=== PATIENT | female | born 1990 | race Caucasian/White ===

== ENCOUNTER 2016-02-29 17:38 | Emergency (ER) | payer OTHER ==
[~2016-02-29] VITALS: Ht 157.5 cm; Wt 109.5 kg
[2016-02-29 17:40] VITALS: BP 135/88; PULSE 98; RESP 20; O2SAT 100
--- NOTE | 2016-02-29 18:28 | ED.REPORT ---
HPI-Dyspnea / Wheezing Date of Service Feb 29, 2016 ED Provider: Cornelio Smith DO Ms. Falk is a 25 y/o woman who is 37 weeks and 6 days and presents complaining of shortness of breath. On Saturday, she had a regular check-up and her blood pressure was spiked at OB office. They did a work up for preeclampsia , which was normal. Followed up today at women[facility] health clinic and BP normal but heart rate 100-130 bpm. Nasal congestion with some blood in snot and right maxillary pressure started on Saturday. Her is currently sick with a cold as well. She feels out of breath with speech. She has palpitations and feels anxious and heavy chest for the last couple of days. It has been intermittent for past week. More movement and sudden movements make it worse. This is her first and baby continues to move. No pleuritic chest pain. Winded with flight of stairs or at work. 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 No increased leg swelling, and her leg swelling seems better. Her hand swelling has worsened over the past week though. Got her flu shot this year. Takes benadryl for sleep occasionally but has not taken it in the past few days. She last took Sudafed on Saturday at 2 PM. Nursing Notes Stated Complaint: POSSIBLE PE Chief Complaint: Respiratory Distress Allergies: Coded Allergies: No Known Allergies (Unverified , 02/29/16) General Time Seen by MD: 18:19 Chief Complaint Shortness of breath Hx Obtained From: Patient Arrived By: Walk-in Onset Occurred: 1 week ago Context of Onset: Upper resp infection Symptom Duration: Intermittent Associated with: Reports: Anxiety, Cough, Nasal congestion, Nausea, Numbness, hands (with driving), Denies: Calf pain, Chest pain, Fever, Hemoptysis, Leg pain, Leg swelling, Numbness, feet, Numbness, perioral, Sore throat, Vomiting Exacerbated by: Activity Relieved by: Rest (nap) Risk Factors CAD Risk Stratification No Amphetamine, No Cocaine, No Diabetes mellitus, No Family history, No Hyperlipidemia, No Hypertension, No Known CAD, No Smoking No risk factors PE Risk Stratification PregnancyNo Coagulation Disorder, No Malignancy, No , No Previous DVT , No Previous PE, No Surgery Last 60 Days, No Trauma Risk factors reviewed PERC Rule Heart rate 100 or over One or more crit "Yes" Well's Criteria for PE HR > 100 (1.5) Well's PE Score: 0-2 pts (low risk 3.6%) (based on vitals in the ED) Well's Criteria for DVT Well's DVT Score: 0 pts (low risk 5%) Past Medical History Past Medical History no known Smoking History Never Smoker Social History Alcohol Use: Denies alcohol use Drug Use: Denies drug use Review of Systems Basic Review of Systems Eyes: Vision NL, No discharge GI: No abdominal pain, No anorexia, No vomiting : No dysuria Neurologic: NL mental status, No weakness, No numbness Psychiatric: Normal thought content Constitutional: Denies: Chills, Fever, Weakness - generalized Ears / Nose / Throat: Reports: Nasal congestion, Sinus problem, Denies: Ear ringing bilateral, Hearing loss bilateral, Sore throat Respiratory: Reports: Dyspnea on exertion, Non-productive cough, Shortness of breath, Denies: Hemoptysis, Pleuritic pain, Wheezing Cardiovascular: Reports: Dyspnea on exertion, Edema (bilateral hands), Palpitations, Denies: Chest pain Musculoskeletal: Denies: Extremity pain Skin: Denies Itching, Denies Rash Allergy / Immune: Denies: Rhinorrhea, Sneezing Physical Exam Initial Vital Signs Vital Signs (First) Date Time Temp Pulse Resp B/P Pulse Ox O2 Delivery O2 Flow Rate FiO2 02/29/16 17:40 37.2 98 20 135/88 100 Room Air Initial VS: Reviewed, Vital signs normal Head / Eyes: Atraumatic, Normocephalic, PERRL ENT: Mucous membranes moist, Conjunctiva normal, No scleral icterus Lymphatic: No lymphadenopathy Extremities: Vascular intact, Neuro intact, No tenderness Skin: Warm, Dry, No cyanosis Neurologic: Alert, Oriented, Nonfocal Psychiatric: Mood/affect normal, Behavior normal, Normal thought content Neck: Atraumatic, Supple, No swelling, Non-tender Respiratory / Chest: Breath sounds NL, Breath sounds = bilat, No rales, No rhonchi, No wheezing Resp Distress / Stridor: Positive: Speaks phrases Cardiovascular: Heart rate NL, Regular rhythm, Heart sounds NL, No gallop, No murmurs, No rubs Upper Ext Edema: Positive: Bilateral 1+, Hand, Non-Pitting ENT: Mucous membranes moist, No peritonsillar abscess Pharynx / Tonsils / Uvula: Positive: Pharyngeal erythema (mild) Sinus: Positive: Tender maxillary R, Negative: Tender frontal L, Tender frontal R, Tender maxillary L Lower Extremity / Pelvis / MS: Inspection NL, No swelling, Non-tender, Neurologic intact, Vascular intact Interpretation & Diagnostics Interpretation & Diagnostics: EKG showed sinus tachycardia CXR did not show any acute changes CT chest angiogram did not show evidence of PE Lab Results Interpretation Result Diagram: 02/29/16 1850 02/29/16 1850 Test 02/29/16 18:50 White Blood Count 9.6th/mm3 (3.8-10.1) Red Blood Count 4.24mil/mm3 (3.90-5.20) Hemoglobin 12.0g/dL (12.0-15.6) Hematocrit 36.2% (35.0-46.0) Mean Corpuscular Volume 85.4fL (81-100) Mean Corpuscular Hemoglobin 28.3pg (27.0-35.0) Mean Corpuscular Hemoglobin Concent 33.1% (32.0-37.0) Red Cell Distribution Width 15.1% (12.3-15.4) Platelet Count 294bil/L (150-400) Neutrophils (%) (Auto) 71.1% (40-74) Lymphocytes (%) (Auto) 19.8% (14-46) Monocytes (%) (Auto) 6.6% (4-12) Eosinophils (%) (Auto) 1.9% (0-5) Basophils (%) (Auto) 0.2% (0-3) D-Dimer 2.2mg/L (<0.50) Sodium Level 137mEq/L (134-144) Potassium Level 4.0mEq/L (3.5-5.2) Chloride Level 103mEq/L (97-108) Carbon Dioxide Level 21mmol/L (18-29) Blood Urea Nitrogen 4mg/dL (6-20) Creatinine 0.43mg/dL (0.57-1.00) Estimat Glomerular Filtration Rate 261mL/min (>59) Glucose Level 88mg/dL (60-99) Calcium Level 8.9mg/dL (8.5-10.1) Total Bilirubin 0.2mg/dL (0.0-1.2) Aspartate Amino Transf (AST/SGOT) 21U/L (0-50) Alanine Aminotransferase (ALT/SGPT) 18U/L (0-32) Alkaline Phosphatase 174U/L (25-150) Total Protein 6.6g/dL (6.4-8.4) Albumin 3.1g/dL (3.4-5.0) Hold Bazan Top Tube Received (Received) Re-Eval/Medical Decision Med Decision/Clinical Course 1. Shortness of breath -Based on vital signs in ED, pt has low risk based on Well's Criteria for PE and for DVT -Met 1 PERC criteria -EKG shows sinus tachycardia -D-dimer 2.2, upper level of normal d-dimer in third trimester is 1.75 based on [employer] -CXR did not show any acute changes suggestive of pneumonia. Rapid influenza is negative. -Bilateral duplex venous US of lower extremity did not show DVT -CT chest angiogram shows no evidence of PE Differential Diagnosis: Negative: Anxiety, Congestive heart failure, Panic attack, Pericarditis, Pneumonia, Pulmonary embolism, Upper resp infection Discharge & Departure Impression: Primary Impression: Shortness of breath due to Trimester: third trimester Qualified Code: O26.893 - Other specified related conditions, third trimester Ruled Out: Pulmonary embolism affecting in third trimester Disposition: Home Discharge Condition All VS Reviewed: Yes Condition: Stable Patient Instructions: Reactive Airways Disease (ED) Additional Instructions: You do not have evidence of a pulmonary embolism based on the CT scan done today. 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 If you experience any worsening shortness of breath or swelling in your leg or pain in your leg, please seek medical attention. Referrals: Luis Lennon MD (PCP) Hood Edge MD 1 Week Attending Statement I took a history and performed a physical examination. I gave her at least moderate probability for pulmonary emboli based on her symptoms. D-dimer was 2.2 which is much greater than the 1.75 normal for her to rest her . Bilateral ultrasounds were negative for DVT. Chest x-ray did not show pneumonia. Influenza was negative. I do not have any other reason beyond the pulmonary emboli that could recently plane her symptoms. I consulted with our radiologist regarding VQ for CT angiogram. CT angiogram was recommended and performed. Pulmonary emboli was ruled out. Symptoms is uncertain but may be related to . 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 Dr. Torres was notified. copies to: Hood Edge MD; Luis Lennon MD, Marissa L DO Feb 29, 2016 18:27 Cornelio Smith DO Mar 01, 2016 18:10
[2016-02-29 18:55] LABS: BASOPHILS % (AUTO) 0.2 % (0-3); EOSINOPHILS % (AUTO) 1.9 % (0-5); MONOCYTES % (AUTO) 6.6 % (4-12); Mean Corpuscular Hemoglobin 28.3 pg (27.0-35.0); Mean Corpuscular Volume 85.4 fL (81-100); NEUTROPHILS % (AUTO) 71.1 % (40-74); Platelet Count 294 bil/L (150-400)
--- NOTE | 2016-02-29 19:56 | DRSVH ---
PROCEDURE: X-RAY CHEST ONE VIEW, PORTABLE ([id number]) INDICATIONS: dyspnea TECHNIQUE: One view of the chest was acquired. COMPARISON: [facility], , CHEST 2VW, 01/28/2014, 12:48. FINDINGS: Surgical changes and devices: None. Lungs and pleura: No pleural effusions or pneumothorax. Lungs are clear. Mediastinum: Mediastinal contours appear normal. Heart size is normal. Bones and chest wall: No suspicious bony lesions. Overlying soft tissues appear unremarkable. IMPRESSION: 1. No acute cardiopulmonary disease. Dictated by: Tavo Rayo M.D. on 02/29/2016 at 19:55 Approved by: Tavo Rayo M.D. on 02/29/2016 at 19:55
--- NOTE | 2016-02-29 20:12 | DRSVH ---
PROCEDURE: US VENOUS LEG DUPLEX BILATERAL INDICATIONS: short of breath, tachycardic, leg swelling TECHNIQUE: Real-time imaging, as well as color and pulse Doppler interrogation, were performed of the deep veins of both legs from the inguinal ligament to the popliteal fossa. COMPARISON: [facility], US, US VENOUS LEG DPLX UNI LT, 01/31/2016, 10:25. FINDINGS: The deep veins are normally compressible, and free of intraluminal thrombus. Color and pu lse Doppler demonstrate normal phasic intravascular flow. There is normal augmentation response to d istal compression maneuver. IMPRESSION: 1. No evidence of deep venous thrombosis in the right or left lower extremity. Dictated by: Tavo Rayo M.D. on 02/29/2016 at 20:10 Approved by: Tavo Rayo M.D. on 02/29/2016 at 20:10
--- NOTE | 2016-02-29 21:20 | DRSVH ---
PROCEDURE: CT ANGIO CHEST PULMONARY EMBOLISM ([id number]) INDICATIONS: 25 year-old female with tachycardia, dyspnea, ddimer 2.2, and negative lower e xtremity US. TECHNIQUE: After the administration of intravenous contrast, 2 mm thick sections acquired from the pulmonary api hugo to the posterior costophrenic angles. 3-dimensional maximum intensity projection (MIP) coronal a nd sagittal reformats were then acquired through the thorax. For radiation dose reduction, the follo wing was used: automated exposure control, adjustment of mA and/or kV according to patient size. COMPARISON: [facility], CR, XR CHEST 1VW (PORTABLE), 02/29/2016, 19:03. FINDINGS: Image quality: Excellent. Pulmonary arteries: Pulmonary arteries are normal in size, and demonstrate no intraluminal filling d efects to suggest central pulmonary embolism. Lungs and pleura: Lungs are clear without focal consolidation. No pleural effusions or pneumothorax . Central and peripheral airways are patent. Mediastinum: Heart size is normal, without pericardial effusion. No mediastinal or hilar adenopathy . There is residual thymus within the anterior mediastinum. Thoracic aorta is normal in caliber and enhancement. Esophagus is normal in caliber, without hiatal hernia. Bones and chest wall: No suspicious bony lesions. Ribs and thoracic spine appear intact throughout. Thyroid gland is partially visualized without a discrete nodule identified. No axillary or supracl avicular adenopathy. Abdomen: Visualized upper abdominal solid organs appear normal in the early arterial phase of enhanc ement. IMPRESSION: 1. No evidence of pulmonary embolism. Dictated by: Tavo Rayo M.D. on 02/29/2016 at 21:19 Approved by: Tavo Rayo M.D. on 02/29/2016 at 21:19
[2016-02-29] MEDS ORDERED: 0.9% Sodium Chloride 1,000 ML IV ONE (21:35)
[2016-02-29] MEDS ORDERED: 0.9% Sodium Chloride 1,000 ML ONE (21:37)
[2016-02-29 22:32] VITALS: BP 121/75; PULSE 88; RESP 16; O2SAT 100
[2016-02-29 22:33] VITALS: BP 121/75; PULSE 88; RESP 16; O2SAT 100
== END 2016-02-29 22:33 | disposition home or self-care (01) ==
LOC: SED 17:38
DX: O26.893 Other specified pregnancy related conditions, third trimester (principal); R06.02 Shortness of breath; R00.0 Tachycardia, unspecified; Z3A.37 37 weeks gestation of pregnancy
CPT/HCPCS: 36415; 71010; 71275; 80053; 85025; 85379; 87804; 93005; 93970; 96360; 99285; J7030; Q9967

== ENCOUNTER 2016-03-13 04:25 | Inpatient (IN) | payer OTHER ==
[~2016-03-13] VITALS: Ht 157.5 cm; Wt 109.8 kg
[2016-03-13] MEDS ORDERED: Lactated Ringer's 1,000 ML IV SCH (10:47)
[2016-03-13] MEDS ORDERED: Oxytocin 30 Units/500 mL LR 30 UNITS in IV Premix 1 EACH IV PRN (10:50)
[2016-03-13] MEDS ORDERED: diphenhydrAMINE 50 mg Capsule PO PRN (10:50)
[2016-03-13] MEDS ORDERED: Lactated Ringer's 1,000 ML IV PRN ×2 (11:08→11:11)
[2016-03-13] MEDS ORDERED: Oxytocin 10 Unit/mL Inj IM PRN (11:10)
[2016-03-13] MEDS ORDERED: Sodium Chloride LOK Flush 10 mL Syringe IVFLUSH PRN ×2 (11:10→11:15)
[2016-03-13] MEDS ORDERED: Carboprost 250 mCg/mL Inj IM PRN (11:10)
[2016-03-13] MEDS ORDERED: Methylergonovine 0.2 mg/mL Inj IM PRN (11:10)
[2016-03-13] MEDS ORDERED: Hemorrhage Kit, Post Partum XX ONE ×2 (11:10→11:15)
[2016-03-13] MEDS ORDERED: Penicillin G K Inj 5,000,000 UNITS in Dextrose 5% Minibag Plus 100 ML IV ONE (11:15)
--- NOTE | 2016-03-13 11:16 | PCM.HPOB ---
Subjective Date of Service: Mar 13, 2016 Referring Provider: Admitting Physician: Bridget Tafoya MD Primary Care Physician: Luis Lennon MD Attending Physician: Bridget Tafoya MD Chief Complaint Induction of Labor History of Present History of Present Illness Patricia Falk is s 25 year old woman at 39 weeks 5 days presents to [facility] for induction of labor. is complicated by Rh- status for which she received RhoGAM at 27 weeks and GBS positive. Patient's WILFREDO by LMP 03/15/2016, by 9 week ultrasound 03/17/2016. OB History: (1), Para (0) Past Medical History Medical History: Pt denies PMH Surgical History: Pt denies PSH Hx Tobacco Use: No Hx Alcohol Use: No Hx Substance Use: No Past Family History Living Arrangement: with Family Genetic Screening/Counseling Genetic Screening/Counseling: Negative Review of Systems Constitutional: Y: Chills, Dizziness, Fever Eyes: Denies: Blurred Vision Cardiovascular: Denies: Chest Pain, Palpitations Respiratory: Denies: Cough, Wheezing Gastrointestinal: Denies: Abdominal Pain, Constipation, Diarrhea, Nausea, Vomiting Genitourinary: Denies: Dysuria Neurological: Denies: Confusion, Dizziness, Numbness Additional Information Blood transfusion if necessary is acceptable to patient Medications Home medications , hydroxyzine recently prescribed secondary to insomnia Allergy Coded Allergies: No Known Allergies (Unverified , 02/29/16) Exam Vital Signs Blood pressure 122/67, 88. At time of dictation patient 1.5 centimeters dilated, -3 station 60% effacement. Exam FHR 150's HEENT: Atraumatic, PERRLA Lungs: Clear to Auscultation, Normal Air Movement Heart: Exam Unremarkable, Regular Rate/Rhythm Abdomen: Gravid Extremities: No Edema Neurological/Psychiatric: Oriented X3, Cooperative, No Acute Distress Labs/Diagnostics Labs Blood type O-, antibody screen negative, RPR nonreactive, hep B surface antigen negative, hep C negative, HIV nonreactive, varicella < 135, rubella 1.99, A1c 5.0, TSH 1.71, HPV negative, gonorrhea/chlamydia negative Ultra Sound Ultrasound dated 03/07/2016 showed single living intrauterine gestation, vertex presentation, posterior placental position without previa Maternal Blood Type: O (negative) Hx Rho(D) Immune Globulin: Yes OB Intrapartum Assessment/Plan Assessment 25-year-old presents for induction of labor. ABX ordered for GBS status. Pt received Rhogam at 27 weeks Problems: (1) Elective induction of labor planned Plan: Proceed with expectant management, anticipate delivery today. Status: Acute Pain Evaluation: Adequate Pain Control Attending Statement Here for induction of labor, semi elective due to a single elevated blood pressure in clinic, and several episodes of tachycardia w/ rule out pulmonary embolism workup, negative for any concerning findings. Cervix is not favorable , will plan cytotec induction of labor, BP normal on L&D, will monitor for worsening. RH negative, plan rhogam if indicated, also varicella non immune, vaccinate PP. heart tones reassuring. CARL REDMAN DO Mar 13, 2016 11:08 Lucy Garsia MD Mar 17, 2016 11:34
[2016-03-13 11:18] LABS: Mean Corpuscular Hemoglobin 28.1 pg (27.0-35.0); Mean Corpuscular Volume 85.8 fL (81-100)
[2016-03-13] MEDS ORDERED: Misoprostol 25 mCg/0.25 Tablet VAGINAL SCH (11:35)
[2016-03-13] MEDS ORDERED: Penicillin G K Inj 3,000,000 UNITS in IV Premix 1 EACH IV SCH (16:30)
--- NOTE | 2016-03-14 01:55 | PCM.PNOBIP ---
Subjective Date of Service Mar 14, 2016 Subjective Patient admitted for planned elective induction of labor on 03/13. Cervix unfavorable and single dose of cytotec given. Nursing staff availability was limited and her induction was put on hold due to pressing concerns on the floor. The patient will be monitored overnight and induction will be restarted this evening when nursing staff are available. Blood Type: O (negative) Labs Laboratory Tests 03/13/16 10:35: White Blood Count 10.5, Red Blood Count 4.09, Hemoglobin 11.5, Hematocrit 35.1, Mean Corpuscular Volume 85.8, Mean Corpuscular Hemoglobin 28.1, Mean Corpuscular Hemoglobin Concent 32.8, Red Cell Distribution Width 15.7, Platelet Count 282 Exam Vital Signs Vital Signs Contraction frequency in minutes: MVUs: Heart Tracings Heart Tones Baseline 120 bpm Heart Rate Variability: Moderate Heart Rate Accelleration: Present Heart Rate Deceleration: Other (Occasional mild variables) Tocometry/IUPC irritability Exam General: Oriented X3, Cooperative, No Acute Distress OB Intrapartum Assessment/Plan Problems: (1) Elective induction of labor planned Plan: Continue observation at this time. Induction placed on hold due to multiple L&D admissions without appropriate nursing staff and induction deemed to be elective. Will restart cytotec when staff cytotechnologist are available. Status: Acute Intrapartum plan: Continue expected management Pain Evaluation: Adequate Pain Control Lucy Garsia MD Mar 14, 2016 01:55
[2016-03-14 09:07] LABS: Mean Corpuscular Hemoglobin 27.6 pg (27.0-35.0); Mean Corpuscular Volume 85.2 fL (81-100)
--- NOTE | 2016-03-14 11:23 | PCM.DC.OB ---
Obstetrical Discharge Summary Date of Service Mar 14, 2016 Date of hospital admission Mar 13, 2016 at 10:06 Date of Discharge: Mar 14, 2016 Providers Admitting Physician: Bridget Tafoya MD Primary Care Physician: Luis Lennon MD Attending Physician: Bridget Tafoya MD Diagnosis at Time of Discharge Prolonged labor secondary to non favorable cervix Problems: (1) Elective induction of labor planned Plan: Pt had failure to progress in labor. She remains 2cm approximately 60% effaced, and at -3 station. Status: Acute Brief History and Physical: Patricia Falk is s 25 year old woman at 39 weeks 5 days presents to [facility] for induction of labor. is complicated by Rh- status for which she received RhoGAM at 27 weeks and GBS positive. Patient's WILFREDO by LMP 03/15/2016, by 9 week ultrasound 03/17/2016. Hospital Course: Patricia Falk is s 25 year old woman at 39 weeks 5 days who presented to the [facility] for planned induction of labor. is complicated by Rh- status for which she received RhoGAM at 27 weeks and GBS positive, which she did receive ABX. Patient's WILFREDO by LMP 03/15/2016, by 9 week ultrasound 03/17/2016. Pt's cervix determined to be unfavorable and single dose of cytotec given. The nursing staff availability was limited on day of scheduled induction and her induction was put on hold. Pt was monitored overnight with planned induction on the . Nursing staff demands remained high and repeat induction was unable to be accomplished secondary to inadequate nursing availability secondary to pressing concerns on the floor. Pt blood pressure stable x 2 days and pre- ecclampsia labs unremarkable. Disposition Discharge to home, will follow up in [facility] clinic in 2 days. Discharge Diet: No restrictions Discharge Activity-General: No restrictions, Be up and about Patient instructions You are being discharged to home today will see you in the office for follow up on Saturday. If you develop worsening contractions, notice a decrease in movement, develope severe abdominal pain, develop fevers greater than 100.4 degrees or experience any abnormal bleeding or leakage of fluids from your vagina please return to the [facility]. CARL REDMAN DO Mar 14, 2016 11:23
--- NOTE | 2016-03-14 11:36 | PCM.DIOB ---
Obstetrical Disch Instruction Date of Service: Mar 14, 2016 Dates of Hospitalization Date of Hospital Admission Mar 13, 2016 at 10:06 Providers Admitting Physician: Bridget Tafoya MD Primary Care Physician: Luis Lennon MD Attending Physician: Bridget Tafoya MD Discharge Diagnosis Problems: (1) Elective induction of labor planned Plan: Induction placed on hold due to multiple L&D admissions without appropriate nursing staff and induction deemed to be elective. Will follow up at [facility] in 2 days Status: Acute Diet Discharge Diet: No restrictions Activity Discharge Activity-General: No restrictions, Be up and about, Activity as energy allows Dressing and Incisional Care Hygiene: May shower Additional Instructions Discharge Instructions You are being discharged to home today, we will see you in the office for follow up on Saturday. If you develop worsening contractions, notice a decrease in movement, develop severe abdominal pain, develop fevers greater than 100.4 degrees or experience any abnormal bleeding or leakage of fluids from your vagina please return to the [facility]. Follow Up Plan Follow Up Plan Follow up at the women's health clinic in 2 days Follow-up appointment: Days (2) Call your provider for: Fever or Chills, Shortness of breath, Heavy vaginal bleeding, Heavy bleeding, Epigastric pain, Excessive constipation, Vaginal discomfort, Red painful breasts CARL REDMAN DO Mar 14, 2016 11:36
[2016-03-14 11:39] VITALS: BP 124/68; PULSE 70; RESP 18
== END 2016-03-14 12:06 | disposition home or self-care (01) | DRG 782 ==
LOC: FBC 10:06
PROVIDERS: ADMIT Obstetrics & Gynecology; ATTEND Obstetrics & Gynecology
PROC: 3E0P7GC Introduction of Other Therapeutic Substance into Female Reproductive, Via Natural or Artificial Opening (ICD-10-PCS; principal; 2016-03-13)
DX: O61.9 Failed induction of labor, unspecified (principal); Z3A.39 39 weeks gestation of pregnancy

== ENCOUNTER 2016-03-16 09:24 | Inpatient (IN) | payer OTHER ==
[~2016-03-16] VITALS: Ht 157.5 cm; Wt 111.6 kg
[2016-03-16] MEDS ORDERED: Lactated Ringer's 1,000 ML IV PRN (09:26)
[2016-03-16] MEDS ORDERED: Hemorrhage Kit, Post Partum XX ONE ×2 (09:30→21:25)
[2016-03-16] MEDS ORDERED: Oxytocin 30 Units/500 mL LR 30 UNITS in IV Premix 1 EACH IV PRN ×2 (09:30→21:25)
[2016-03-16] MEDS ORDERED: Methylergonovine 0.2 mg/mL Inj IM PRN ×2 (09:30→21:25)
[2016-03-16] MEDS ORDERED: Sodium Chloride LOK Flush 10 mL Syringe IVFLUSH PRN (09:30)
[2016-03-16] MEDS ORDERED: Oxytocin 10 Unit/mL Inj IM PRN ×2 (09:30→21:25)
[2016-03-16] MEDS ORDERED: fentaNYL-PF 50 mCg/mL 2 mL Inj IVPUSH PRN (09:30)
[2016-03-16] MEDS ORDERED: Penicillin G K Inj 5,000,000 UNITS in Dextrose 5% Minibag Plus 100 ML IV ONE (09:30)
[2016-03-16] MEDS ORDERED: Carboprost 250 mCg/mL Inj IM PRN ×2 (09:30→21:25)
[2016-03-16] MEDS ORDERED: PREN1TAB25 PO (09:58)
[2016-03-16] MEDS ORDERED: HYDR-656 PO (09:58)
[2016-03-16] MEDS: Lactated Ringer's 1,000 ML IV SCH ×4 (11:09→23:19)
[2016-03-16 11:52] LABS: Mean Corpuscular Hemoglobin 27.8 pg (27.0-35.0); Mean Corpuscular Volume 86.2 fL (81-100)
[2016-03-16] MEDS: Penicillin G K Inj 3,000,000 UNITS in IV Premix 1 EACH IV SCH ×3 (15:19→23:00)
--- NOTE | 2016-03-16 15:50 | PCM.HPOB ---
Subjective Date of Service: Mar 16, 2016 Referring Provider: Admitting Physician: Lucy Garsia MD Primary Care Physician: Luis Lennon MD Attending Physician: Lucy Garsia MD Chief Complaint Spontaneous rupture of membranes Term History of Present History of Present Illness 25 year old at 40 weeks 1 day gestation presents to [facility] from clinic for induction of labor. Per clinic note today she felt leaking fluid at 6 am yesterday (03/15/15) on exam she was positive for pooling, nitrite and ferning. Send in to [facility] for induction of labor. cervical exam: /-3/soft/mid is complicated by Rh- status for which she received RhoGAM at 27 weeks and GBS positive. Patient's WILFREDO by LMP 03/15/2016, by 9 week ultrasound 03/17/2016. OB History: (1), Para (0) Past Medical History Obstetrical History: none Medical History: none Surgical History: none Hx Tobacco Use: No Hx Alcohol Use: No Hx Substance Use: No Past Family History Living Arrangement: with Family Genetic Screening/Counseling Genetic Screening/Counseling: Negative Review of Systems Constitutional: Y: Chills, Fever Eyes: Denies: Blurred Vision ENT: Reports: Nasal Congestion Cardiovascular: Denies: Chest Pain Respiratory: Denies: Cough Gastrointestinal: Denies: Epigastric pain Genitourinary: Denies: Dysuria Neurological: Denies: Dizziness, Weakness Medications Home medications hydroxyzine prn for sleep vitamin Allergy Coded Allergies: No Known Allergies (Unverified , 02/29/16) Exam Constitutional: Well-developed, Well-nourished HEENT: Atraumatic Lungs: Clear to Auscultation, Normal Air Movement Heart: Regular Rate/Rhythm, No Murmurs/Rubs/Gallops Abdomen: Gravid, Normal bowel sounds Extremities: Warm, Edema (+1) Neurological/Psychiatric: Alert, Oriented X3 Neuro: Grossly Neurologically Intact Labs/Diagnostics Labs Blood type O-, antibody screen negative, RPR nonreactive, hep B surface antigen negative, hep C negative, HIV nonreactive, varicella non immune, rubella immune , A1c 5.0, TSH 1.71, HPV negative, gonorrhea/chlamydia negative Maternal Blood Type: O Hx Rho(D) Immune Globulin: Yes (27 weeks) Antibody Screen: neg Group B Strep Results: Positive Previous Infant with GBS: No Rubella: Immune OB Intrapartum Assessment/Plan Assessment 25 yo with grossly ruptured membranes, ROM+ sent here for induction of labor. Rh negative, GBS positive, varicella nonimmune Problems: (1) PROM (premature rupture of membranes) Plan: Continue with induction of labor and expectant management Status: Acute ICD Code: O42.90 (2) Rh negative status during Plan: RhoGam given at 27 weeks, give intrapartum and if needed post . Status: Acute ICD Code: O09.899 (3) Positive GBS test Plan: Treat with IV penicillin Status: Acute ICD Code: B95.1 (4) Qualifiers: Weeks of gestation: 40 weeks Qualified Code: Z3A.40 - 40 weeks gestation of Plan: Continue expectant management Status: Acute ICD Code: Z33.1 (5) Maternal varicella, non-immune Plan: Varicella vaccine at post visit Status: Acute ICD Code: O09.899 Pain Management: Epidural when desired Pain Evaluation: Adequate Pain Control Intrapartum plan Continue supportive care Attending Statement The patient was seen and examined together and I agree with the history, exam and plan as outlined in the note above. Admitted for augmentation of labor for prolonged rupture of membranes after failed induction two days prior. Pitocin started per protocol. Continue expectant management. CLAUDIA KOLB DO Mar 16, 2016 15:11 Lucy Garsia MD Mar 17, 2016 22:54
[2016-03-16] MEDS ORDERED: Lactated Ringer's 500 ML IV ONE (16:58)
[2016-03-16] MEDS ORDERED: EPHEDrine Sulfate 50 mg/mL Inj IVPUSH PRN (17:00)
[2016-03-16] MEDS ORDERED: Atropine 1 mg/10 mL (Code) Syringe IVPUSH PRN (17:00)
[2016-03-16] MEDS ORDERED: Ondansetron 2 mg/mL 2 mL Inj IVPUSH PRN (17:00)
[2016-03-16] MEDS ORDERED: fentaNYL 2 mCg/mL-Bupiv 0.125% 100 ML EPIDURAL SCH (17:00)
[2016-03-16] MEDS ORDERED: Lactated Ringer's 1,000 ML IV SCH (21:22)
[2016-03-16] MEDS ORDERED: Measles-Mumps-Rubella Vaccine 0.5 mL Inj SUBQ ONE (21:25)
[2016-03-16] MEDS ORDERED: oxyCODONE-Acetamin 5-325 mg Tablet PO PRN (21:25)
[2016-03-16] MEDS ORDERED: LANOlin HPA 7 Gm Ointment TOPICAL PRN (21:25)
[2016-03-16] MEDS: Witch Hazel-Glycerin Pads TOPICAL PRN (22:21)
[2016-03-16] MEDS: Benzocaine (Dermoplast) 20% 60 Gm Spray TOPICAL PRN (22:21)
--- NOTE | 2016-03-17 03:21 | OP ---
[address] [address] OPERATIVE REPORT PATIENT: DAVID RAZA : 1990 MR#: [id number] ADMIT: 03/16/2016 JOB ID: [id number] DATE OF SURGERY: DELIVERY NOTE: PREOPERATIVE DIAGNOSIS(ES): 1. Intrauterine at 40 weeks and 1 day. 2. Premature rupture of membranes. 3. GBS positive, Rh negative. 4. Morbidly obesity, BMI of 45. POSTOPERATIVE DIAGNOSIS(ES): 1. Intrauterine at 40 weeks and 1 day.Status post normal vaginal delivery. 2. Premature rupture of membranes. 3. GBS positive, Rh negative. 4. Morbidly obesity, BMI of 45. PROCEDURE: 1. Spontaneous vaginal delivery 2. First degree perineal laceration repair. SURGEON: Nadia García MD. PIN BALL MACHINE MECHANIC: None. ESTIMATED BLOOD LOSS: 350 mL. PROCEDURE: This is a 25-year-old 1, now para 1, presented at 40 weeks and 1 day gestation with premature rupture of membranes since March 15, 2015 at approximately 6 a.m. The patient was started on Pitocin for induction, today March 16, 2016. The patient became in active labor around 1641 and made significant cervical change and progressed to complete dilation at 1900 and pushed effectively to deliver on March 16, 2016 at 2041 via spontaneous vaginal delivery over an intact perineum under epidural anesthesia. Delivered a cephalic presented male infant in occiput anterior position. The head delivered, followed by the shoulders without difficulty. No nuchal cord. The was placed on the maternal abdomen and was vigorous with Apgars of 9 at one minute and 10 at five minutes. Delayed cord clamp was performed after 1 minute. Cord blood was obtained for typing. The placenta delivered spontaneously intact with a three vessel cord at 2057. The oxytocin was started. Fundal massage was performed. Uterus was firm. Bleeding was minimal. Perineum was examined and two first degree perineal lacerations were noted; the right one at the hymen was hemostatic, no repair was needed. The left first degree laceration was repaired with 3-0 Vicryl in a running, locked fashion. The perineum and the vagina was examined and hemostasis was ensured. All instruments, needles and sponge counts were correct x2. Infant and mother were stable and recovering in the delivery room. I, Nadia García MD, was present and performed the entire delivery. BÁRBARA
[2016-03-17 07:01] LABS: Mean Corpuscular Hemoglobin 27.7 pg (27.0-35.0); Mean Corpuscular Volume 86.6 fL (81-100)
[2016-03-17] MEDS ORDERED: Ascorbic Acid 500 mg Tablet PO SCH (08:00)
--- NOTE | 2016-03-17 09:17 | PCM.ANEP1 ---
Post Anesthesia Phase 1 PACU Phase 1 Assessment Date of Service: Mar 16, 2016 Vital Signs stable, see nurses notes Anesthetic Administered: Epidural Level of Alertness: Awake, talking CARR's with Equal Strength: Yes Pain: No Pain Scale Score: 4 Nausea or Vomiting: No Oxygen Delivery: Room Air Lungs: Normal Air Movement Dermatome Level: Full Sensation Mychal Love MD Mar 17, 2016 09:17
--- NOTE | 2016-03-17 09:17 | PCM.ANEP2 ---
Post Anesthesia Evaluation ASA/CMS Post Anesthesia VS in Patient's Normal Range?: Yes Resp Stable; Airway Patent?: Yes CV Function & Hydration Stable: Yes Mental Status Recovered?: Yes Pain control Satisfactory?: Yes N/V Control Satisfactory?: Yes Mychal Love MD Mar 17, 2016 09:17
--- NOTE | 2016-03-17 09:23 | PCM.DIGYN ---
Surgical Discharge Instruction Dates of Hospitalization Date of Hospital Admission Mar 16, 2016 at 09:24 Providers Admitting Physician: Lucy Garsia MD Primary Care Physician: Luis Lennon MD Attending Physician: Lucy Garsia MD Diagnosis at Time of Discharge Diagnosis at time of discharge Spontaneous vaginal delivery Problems: (1) PROM (premature rupture of membranes) Status: Acute ICD Code: O42.90 (2) Rh negative status during Status: Acute ICD Code: O09.899 (3) Positive GBS test Status: Acute ICD Code: B95.1 (4) Qualifiers: Weeks of gestation: 40 weeks Qualified Code: Z3A.40 - 40 weeks gestation of Status: Acute ICD Code: Z33.1 (5) Maternal varicella, non-immune Status: Acute ICD Code: O09.899 Diet Discharge Diet: No restrictions Activity Discharge Activity-General: No restrictions, Be up and about, No lifting >10 pounds for 4-6 weeks Dressing and Incisional Care Hygiene: May shower, NO bathtub, hot tub or whirlpool Follow Up Plan Follow-up appointment: Weeks (1 and 6 weeks) Call your provider for: Fever, Chills, Shortness of breath, Heavy vaginal bleeding, Increasing pain Lucy Garsia MD Mar 17, 2016 09:23
[2016-03-17] MEDS ORDERED: IBUP800T28 PO (09:26)
--- NOTE | 2016-03-17 10:54 | DIS ---
[address] [address] DISCHARGE SUMMARY PATIENT: DAVID RAZA : 1990 MR#: [id number] ADMIT: 03/16/2016 JOB ID: [id number] DIS: 03/17/2016 ADMISSION DIAGNOSES: 1. Forty week intrauterine with spontaneous rupture of membranes. 2. Rh negative status. 3. GBS positive status. 4. Varicella non immune DISCHARGE DIAGNOSES: 1. Forty week intrauterine with spontaneous rupture of membranes. 2. Rh negative status. 3. GBS positive status. 4. Varicella non immune 5. Gestational hypertension PROCEDURES PERFORMED: Spontaneous vaginal delivery with delivery of a live born male infant, born on March 16, 2016 at 2042 hours with Apgars of 9 at one minute, 10 at five minutes. REASON FOR ADMISSION: This is a 25-year-old, G 1, P 0 female who presented at 40 + 1 weeks gestation with spontaneous rupture of membranes for augmentation of labor. The EDC was March 15, 2016. The patient had been seen two days prior for a planned elective induction of labor and was discharged home after making minimal cervical change. Two days later, she presented to clinic for a planned visit, and at that point in time, she was complaining of leakage of fluid. She was tested in the clinic and noted to have positive pooling, nitrate and ferning on examination and she was sent to Labor and Delivery where a ROM plus examination confirmed the same findings. was complicated by Rh negative status, GBS positive status, varicella non immune and isolated elevated blood pressure prior to delivery. The laboratory data showed blood type of O-negative, antibody screen negative, RPR nonreactive, hep B surface antigen negative, HIV negative, hep C negative, varicella nonimmune, rubella immune and GBS positive. She was found to be grossly ruptured and was admitted for augmentation of labor. HOSPITAL COURSE: The patient was admitted when she was found to be grossly ruptured for an augmentation of labor. Penicillin was started per protocol for her GBS positive status. Pitocin was started per protocol and she progressed to complete around 1900 hours on March 16 going on to deliver the liveborn male at 2042 hours on the same day. she did well, but she was noted to have some elevated blood pressures that ranged between 120s-150s/60s-90s . By day #1, her pain was well controlled. She was tolerating a regular diet, voiding and ambulating well on her own and her was doing well as well. Her blood pressures on the day of day one, were 130s-140s/60s-70s and PIH labs were within normal limits. She was Rh negative and infant antibody screen was completed which confirmed that the was also Rh negative so no RhoGAM was indicated. It is at this point in time that she was deemed stable for discharge. INSTRUCTIONS AT DISCHARGE: The patient was advised to remain on pelvic rest for six weeks including no tampons, douching or intercourse. She was asked to call if any signs or symptoms of infection including severe pain, temperature greater than 100.5 degrees, malodorous vaginal discharge or heavy vaginal bleeding filling more than a pad per hour. She was also called with any signs or symptoms of severe blood pressure issues including headaches, vision changes or severe right upper quadrant pain. MEDICATIONS AT DISCHARGE: Included ibuprofen 800 mg p.o. q.8 hours p.r.n. pain and she was asked to continue her vitamins as prescribed. She was to also followup in one week in our clinic for a blood pressure check. She is also asked to follow up in six weeks for a check as well. She was varicella nonimmune and will need a varicella vaccine , but this is not available in the hospital at the time of discharge. All questions and concerns of the patient were answered prior to discharge. She was deemed stable for discharge on day #1. BÁRBARA
[2016-03-17 13:37] VITALS: BP 131/77; PULSE 101; RESP 18
[2016-03-17] MEDS: Witch Hazel-Glycerin Pads TOPICAL PRN (14:10)
[2016-03-17] MEDS: Benzocaine (Dermoplast) 20% 60 Gm Spray TOPICAL PRN (14:11)
== END 2016-03-17 15:47 | disposition home or self-care (01) | DRG 775 ==
LOC: FBC 09:24
PROVIDERS: ADMIT Obstetrics & Gynecology; ATTEND Obstetrics & Gynecology
PROC: 10E0XZZ Delivery of Products of Conception, External Approach (ICD-10-PCS; principal; 2016-03-16)
PROC: 0HQ9XZZ Repair Perineum Skin, External Approach (ICD-10-PCS; 2016-03-16)
DX: O42.12 Full-term premature rupture of membranes, onset of labor more than 24 hours following rupture (principal); Z68.42 Body mass index [BMI] 45.0-49.9, adult; O36.0930 Maternal care for other rhesus isoimmunization, third trimester, not applicable or unspecified; Z3A.40 40 weeks gestation of pregnancy; Z37.0 Single live birth; O70.0 First degree perineal laceration during delivery; O99.824 Streptococcus B carrier state complicating childbirth; O99.214 Obesity complicating childbirth; E66.01 Morbid (severe) obesity due to excess calories